=== PATIENT | male | born 1970 | race Caucasian/White ===

== ENCOUNTER 2020-07-08 08:01 | Day surgery (SDC) | payer OTHER, SELFPAY ==
[~2020-07-08] VITALS: Ht 170.2 cm; Wt 113.4 kg
[2020-07-08] MEDS ORDERED: LIDOCAINE 2% 100 MG/5 ML UJET TP ONE (09:25)
[2020-07-08] MEDS ORDERED: fentaNYL citrate 0.05 MG/ML VIAL ONE (09:25)
[2020-07-08] MEDS ORDERED: fentaNYL citrate 0.05 MG/ML VIAL IVP ONE (10:10)
== END 2020-07-08 10:30 | disposition home or self-care (01) ==
LOC: MFCC 08:01 → MDS 08:01
PROVIDERS: ATTEND Internal Medicine Gastroenterology
DX: Z12.11 Encounter for screening for malignant neoplasm of colon (principal); K57.30 Diverticulosis of large intestine without perforation or abscess without bleeding; K21.9 Gastro-esophageal reflux disease without esophagitis; E66.9 Obesity, unspecified; Z68.39 Body mass index [BMI] 39.0-39.9, adult; Z98.890 Other specified postprocedural states; Z20.828 Contact with and (suspected) exposure to other viral communicable diseases
CPT/HCPCS: 45378; J3010; U0003

== ENCOUNTER 2024-04-03 09:31 | Day surgery (SDC) | payer OTHER ==
[~2024-04-03] VITALS: Ht 190.5 cm; Wt 99.8 kg
[2024-04-03] MEDS ORDERED: fentaNYL citrate 0.05 MG/ML VIAL ONE (10:33)
[2024-04-03] MEDS ORDERED: MIDAZOLAM 2 MG/2 ML VIAL ONE (10:34)
[2024-04-03] MEDS: MIDAZOLAM 2 MG/2 ML VIAL IVP ONE (11:03)
== END 2024-04-03 12:45 | disposition home or self-care (01) ==
LOC: MMU 09:31 → MDS 09:31
PROVIDERS: ATTEND Internal Medicine Gastroenterology
DX: R10.13 Epigastric pain (principal); K21.9 Gastro-esophageal reflux disease without esophagitis; Z79.899 Other long term (current) drug therapy; Z98.890 Other specified postprocedural states
CPT/HCPCS: 36415; 43239; 86677; J2250; J3010